=== PATIENT | female | born 1970 | race Caucasian/White ===

== ENCOUNTER 2018-10-07 02:10 | Emergency (ER) | payer SELFPAY ==
[2018-10-07 02:54] LABS: Basophils % (Auto) 0.3 % (0.0-1.8); Eosinophils % (Auto) 0.3 % (0.0-4.3); Hematocrit 41.6 % (30.3-42.9); Hemoglobin 14.3 gm/dl (10.1-14.3); Lymphocytes % (Auto) 23.3 % (13.4-35.0); Mean Corpuscular HGB Conc 34 % (30-34); Mean Corpuscular Volume 91 fl (79-97); Monocytes # (Auto) 0.6 K/mm3 (0.0-0.8); Monocytes % (Auto) 6.7 % (0.0-7.3); Platelet Count 262 K/mm3 (140-440); Red Cell Distribution Width 13.2 % (13.2-15.2)
[2018-10-07 03:17] LABS: Calcium 9.4 mg/dL (8.4-10.2); Hemolysis Index 26
[2018-10-07 03:36] LABS: HCG Qualitative,Urine Negative (Negative)
[2018-10-07 03:38] LABS: Bilirubin,Urine NEG (Negative); Blood,Urine NEG (Negative); Color,Urine Yellow (Yellow); Mucus,Urine FEW /HPF; Urobilinogen,Urine < 2.0 mg/dL (<2.0)
[2018-10-07 03:42] LABS: BUN/Creatinine Ratio 13; Blood Urea Nitrogen 8 mg/dL (7-17)
[2018-10-07] MEDS ORDERED: TORADOL IM ONE (04:29)
[2018-10-07] MEDS ORDERED: XYLOCAINE TOPICAL 2% 30ML TP ONE (04:29)
[2018-10-07 04:41] VITALS: BP 142/92
--- NOTE | 2018-10-07 04:50 | Emergency Department Report ---
ED General Adult HPI - General Chief complaint: Neuro Symptoms/Deficit Stated complaint: PAIN AND BURNING SENSATION IN FEET AND FINGERS Time Seen by Provider: 10/07/18 03:11 Source: patient, family, RN notes reviewed Mode of arrival: Ambulatory Limitations: No Limitations - History of Present Illness Initial comments: This is a pleasant 47-year-old female. The patient is not known to this provider previously. Patient speaks [place], but is also conversational in [place]. The patient states that she is amenable to proceeding with the history and physical in [place]an. Furthermore, she indicates her son can translate for her, if she has any issues. She reports that she has no chronic medical conditions. She presents to the ER today with a complaint of nontraumatic burning right and left hand pain, and burning bilateral lower extremity pain. This pain has been present over the past few days. 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 The burning pain is on the dorsal lateral and medial aspects of the bilateral hands. It extends up to the bilateral wrists. The burning pain in her legs starts at the proximal tibia, and moves distally. This pain is decreased with massage. The patient denies weakness. She denies numbness. She denies other injuries. She denies other complaints. -: Gradual, days(s) Location: left, right, upper extremity, lower extremity Radiation: extremity Severity scale (0 -10): 8 Quality: burning Consistency: constant Improves with: rest Worsens with: movement - Related Data Previous Rx's Medication Instructions Recorded Last Taken Type Acetaminophen [Non-Aspirin Extra 500 mg PO Q6HR PRN #30 tablet 10/07/18 Unknown Rx Strength] Ibuprofen [Motrin] 600 mg PO Q8H PRN #30 tablet 10/07/18 Unknown Rx Lidocaine/Hydrocortisone AC 1 applic TP BID PRN #1 cream.[email or web address] 10/07/18 Unknown Rx [Lidocaine HC 3-1% CREAM] Allergies Allergy/AdvReac Type Severity Reaction Status Date / Time No Known Allergies Allergy Unverified 10/07/18 02:32 ED Review of Systems ROS: Stated complaint: PAIN AND BURNING SENSATION IN FEET AND FINGERS Other details as noted in HPI Constitutional: denies: fever Eyes: denies: eye discharge ENT: denies: epistaxis Respiratory: denies: cough Cardiovascular: denies: chest pain Gastrointestinal: denies: abdominal pain Musculoskeletal: myalgia Skin: denies: rash, lesions Neurological: denies: numbness, paresthesias, confusion Hematological/Lymphatic: denies: easy bleeding ED Past Medical Hx - Past Medical History Previous Medical History?: No - Surgical History Past Surgical History?: No Additional Surgical History: X 1 - Social History Smoking Status: Never Smoker Substance Use Type: None - Medications Home Medications: Home Medications Medication Instructions Recorded Confirmed Last Taken Type Acetaminophen [Non-Aspirin Extra 500 mg PO Q6HR PRN #30 tablet 10/07/18 Unknown Rx Strength] Ibuprofen [Motrin] 600 mg PO Q8H PRN #30 tablet 10/07/18 Unknown Rx Lidocaine/Hydrocortisone AC 1 applic TP BID PRN #1 cream.[email or web address] 10/07/18 Unknown Rx [Lidocaine HC 3-1% CREAM] ED Physical Exam - General Limitations: No Limitations General appearance: alert, in no apparent distress - Head Head exam: Present: atraumatic, normocephalic - Eye Eye exam: Present: normal appearance, EOMI. Absent: nystagmus - ENT ENT exam: Present: normal exam, normal orophraynx, mucous membranes moist, normal external ear exam - Neck Neck exam: Present: normal inspection, full ROM. Absent: tenderness, meningismus - Respiratory Respiratory exam: Present: normal lung sounds bilaterally. Absent: respiratory distress - Cardiovascular Cardiovascular Exam: Present: regular rate, normal rhythm, normal heart sounds. Absent: bradycardia, tachycardia, irregular rhythm, systolic murmur, diastolic murmur, rubs, gallop - GI/Abdominal GI/Abdominal exam: Present: soft. Absent: distended, tenderness, guarding, rebound, rigid, pulsatile mass - Extremities Exam Extremities exam: Present: normal inspection, full ROM, other (2+ pulses noted in the bilateral upper, lower extremities. Compartments soft. No long bony tenderness. The pelvis is stable.). Absent: pedal edema, joint swelling, calf tenderness - Back Exam Back exam: Present: normal inspection, full ROM. Absent: tenderness, CVA tenderness (R), CVA tenderness (L), paraspinal tenderness, vertebral tenderness - Neurological Exam Neurological exam: Present: alert, other (Extraocular movements intact. Tongue midline. No facial droop. Facial sensation intact to light touch in the V1, V2, V3 distribution bilaterally. 5 and 5 strength in 4 extremities.. Sensation is intact to light touch in 4 extremities.). Absent: motor sensory deficit - Psychiatric Psychiatric exam: Present: normal affect, normal mood - Skin Skin exam: Present: warm, dry, intact, normal color, ecchymosis, other (ecchymoses symmetrically distributed in the bilateral back, and bilateral upper extremities. Patient states this is from cupping therapy.). Absent: rash ED Course Vital Signs 10/07/18 10/07/18 10/07/18 02:23 03:31 03:52 Temperature 97.8 F 97.9 F Pulse Rate 74 66 70 Respiratory 18 12 17 Rate Blood Pressure 133/70 143/82 Blood Pressure 143/82 [Left] O2 Sat by Pulse 100 100 100 Oximetry 10/07/18 04:00 Temperature Pulse Rate 69 Respiratory 12 Rate Blood Pressure 142/92 Blood Pressure [Left] O2 Sat by Pulse 100 Oximetry ED Medical Decision Making - Lab Data Result diagrams: 10/07/18 02:41 10/07/18 02:41 Vital Signs 10/07/18 10/07/18 10/07/18 02:23 03:31 03:52 Temperature 97.8 F 97.9 F Pulse Rate 74 66 70 Respiratory 18 12 17 Rate Blood Pressure 133/70 143/82 Blood Pressure 143/82 [Left] O2 Sat by Pulse 100 100 100 Oximetry 10/07/18 04:00 Temperature Pulse Rate 69 Respiratory 12 Rate Blood Pressure 142/92 Blood Pressure [Left] O2 Sat by Pulse 100 Oximetry - Medical Decision Making Differential diagnosis, including not limited to: Fibromyalgia, arthritis, peripheral neuropathy, crystal arthritis Assessment and plan: 47-year-old female with burning pain on the bilateral distal hands, and bilateral distal lower extremities. She is afebrile with reassuring vital signs. Her physical exam is not consistent with fracture, dislocation, cellulitis, compartment syndrome, and it is very unlikely to be crystal arthritis. There is full range of motion in the bilateral upper and lower extremities. Her screening laboratory studies are unremarkable. Her physical exam is unremarkable. The patient does not appear to have an emergent medical condition at this time. The patient is medically suitable to be discharged with instructions to follow up as an outpatient. Critical care attestation.: If time is entered above; I have spent that time in minutes in the direct care of this critically ill patient, excluding procedure time. ED Disposition Clinical Impression: Burning pain Disposition: DC-01 TO HOME OR SELFCARE Is pt being admited?: No Does the pt Need Aspirin: No Condition: Stable Instructions: Peripheral Neuropathy (ED) Additional Instructions: Take the pain medications as needed/directed. Rest, avoid heavy lifting, and avoid strenuous physical activities. Cultures were sent today of the urine, and results will be available in the next 3-5 days. Please have a primary care doctor contact the medical records department to obtain culture results. Follow up with neurology doctor or primary care doctor for burning pain within the next 7-10 days. Return to the emergency room right away with new, worsening or different symptoms, or symptoms not present on the initial emergency room evaluation. Referrals: SIVA DE MD [Primary Care Provider] - 3-5 Days SABIHA DODD MD [Staff Physician] - 3-5 Days KIYA SOLORZANO MD [Staff Physician] - 3-5 Days
== END 2018-10-07 05:15 | disposition home or self-care (01) ==
LOC: ED 02:10
DX: M79.642 Pain in left hand (principal); M79.641 Pain in right hand; M79.672 Pain in left foot; M79.671 Pain in right foot; Z79.899 Other long term (current) drug therapy
CPT/HCPCS: 36415; 80048; 81001; 81025; 82550; 85025; 87086; 96372; 99283; J1885